=== PATIENT | female | born 2005 | race Two or more races ===

== ENCOUNTER 2025-03-01 19:40 | Emergency (ER) | payer BC, SELFPAY ==
--- OUTSIDE RECORDS SUMMARY | 2025-03-01 19:42 | XMS_ITS | Referral Summary ---
Author Organization [employer] Address [address] [place] [address] Phone Care Team Providers Care Head Mixer Name Role Phone Unavailable Primary Care Provider Unavailabl e Source Comments [employer]box is fully rolled out on [employer]. Last update 03/27/09.[employer] Allergies No known active allergies Medications * This document contains information received from the source organization and may not represent a complete record from that organization. * Be aware that medications may not be up to date as of this document. Always verify current medications with patient. No known medications Social History Tobacco Use Types Packs/Day Years Used Date Smoking Tobacco: Never Assessed Comments Unknown Sex and Gender Information Value Date Recorded Sex Assigned at Not on file Legal Sex Female 2:50 AM CDT Gender Identity Not on file Sexual Orientation Not on file Last Filed Vital Signs Vital Sign Reading Time Taken Comments Blood Pressure 106/60 08/18/2024 9:51 AM CDT Pulse 65 08/18/2024 9:51 AM CDT Temperature 36.9 C (98.4 F) 08/18/2024 4:35 AM CDT Respiratory Rate 14 08/18/2024 7:24 AM CDT Oxygen Saturation 100% 08/18/2024 9:51 AM CDT Inhaled Oxygen Concentration - - Weight - - Height - - Body Mass Index - - Plan of Treatment Not on file Insurance Kim Talbert # ISSA [id number] [facility]
--- OUTSIDE RECORDS SUMMARY | 2025-03-01 19:42 | XMS_ITS | Clinical Summary ---
Author Organization [employer] Address [address] [place] [id number] Phone Care Team Providers Care Section Laborer Name Role Phone Unavailable Primary Care Provider Unavailabl e Source Comments [employer]Payment is fully rolled out on [employer]. Last update 03/27/09.[employer] Allergies No known active allergies Medications * [...] Mass Index - - Plan of Treatment Health Maintenance Due Date Last Done Comments Dental Oral Exam 2003 Dental Prophylaxis 2003 Dental X-Ray: Bitewings 2003 Well Child Check 2006 Chlamydia & Gonorrhea Screening 2015 Periodontal Maintenance 2017 HIV Screening 2018 Imm: DTaP/Tdap (7 - Td or Tdap) 08/09/2023 08/09/2013, 06/29/2007, 10/01/2004, Additional history exists Imm: COVID-19 ( season) 2024 10/18/2022, 05/17/2022, 05/14/2021, Additional history exists Imm: Flu (#1) 06/23/2024 08/13/2021, 08/23, 10/11/2019, Additional history exists Cervical Cancer Screening Age 21-29 2024 Imm: Zoster (1 of 2) 2053 Imm: HepB Completed 01/02/2004, 06/2004, 2003 Imm: Hib Completed 10/01/2004, 06/2004, 2003 Imm: Pneumonia Peds or At-Risk less than 50 years Aged Out 10/01/2004, 07/09/2004, 2003, Additional history exists No longer eligible based on patient's age to complete this topic Imm: HepA Completed 08/28/2008, 07/17/2007 Imm: HPV Completed 09/02/2016, 05/23, 09/04/2015, Additional history exists Imm: Meningitis Completed 11/27/2019, 07/21/2014 Insurance # [id number] [place] [address] [facility]
--- OUTSIDE RECORDS SUMMARY | 2025-03-01 19:42 | XMS_ITS | Clinical Summary ---
Author Organization [facility] Address [address] [place] [address] Care Team Providers Care Asphalt Tar And Gravel Roofer Name Role Phone Evan Perdomo M.D. Primary Care Provider [phone] Source Comments Patient records contain information from all sites at [facility]. For routine questions regarding patient records, call [phone] during business hours, M-F 8:00 AM - 5:00 PM Central Time. Record requests for emergency care only can be directed to [phone] at any time.[facility] Allergies No known active allergies Medications * This document contains information received from the source organization and may not represent a complete record from that organization. ergocalciferol (DRISDOL) 50,000 Unit capsule Take 1 capsule (50,000 Units total) by mouth once a week. 8 capsule 08/11/2022 Active norethindrone-e thinyl estradiol (Loestrin ,) 1-20 mg-mcg per tablet Take 1 tablet by mouth daily. 84 tablet 3 04/30/2024 Active polyethylene glycol (Miralax) 17 gram/dose oral powder Take 17 g by mouth daily. Dissolve each 17 g dose in 240 mL (8 ounces) of beverage. 507 g 2 04/30/2024 Active famotidine (Pepcid) 20 mg tablet Take 1 tablet (20 mg total) by mouth 2 (two) times a day. 60 tablet 3 04/30/2024 Active Active Problems Patient Care Coordination No te Formatting of this note migh t be different from the original. Mom: Isela Dad: Jonel Siblings: ford (mom) [phone](dad) Problem Noted Date Diagnosed Date Acculturation Difficulty 05/17/2022 Overview (11/21/2022): Diagnosis Maintenance Updates Functional Dyspepsia 02/26/2020 Anorexia Nervosa 12/10/2019 Fibrocystic Breast Bilateral 11/19/2015 Malocclusion 09/07/2015 Dyschromia 01/16/2013 Rhinitis Allergic 07/06/2012 Resolved Problems Problem Noted Date Diagnosed Date Resolved Date Fatigue 07/17/2023 04/30/2024 Seborrhea 04/14/2019 12/10/2019 Asthma Chronic Mild 09/05/2016 01/19/20 18 Overview (03/14/2017): Asthma Chronic Mild Encounters Date Type Department Care Team Description 02/25/2025 Orders Only [facility] Evan Tracey M.D. 01/14/2025 Patient Self-Triage [facility] Symptom Weight Control Engineer, Provider 01/14/2025 Patient Self-Triage [facility] Symptom Weight Control Engineer, Provider from Last 3 Months Immunizations Immunization Administration Dates Next Due 4vHPV (discontinued) 09/02/2016,09/04/2015,07/21 9vHPV 09/02/2016,06/07/2016,09/04/2015 DTaP (Daptacel) 10/01/2004 DTaP (Infanrix, Tripedia) 06/29/2007,09/22/2004 DTaP / Hep B / IPV (Pediarix) 01/02/2004, 004,2003 H1N1 All Forms 10/29/2009,09/23/2009 H1N1 Inj 10/29/2009,09/23/2009 HepA Pediatric/Adolescent 08/28/2008,07/17/2007 Hib (PRP-OMP) (PedvaxHIB) 10/01/2004,2003, 2003 Hib (PRP-T) (ACTHIB, HIBERIX) 10/01/2004, 004,2003 IPV 06/29/2007 Influenza, Injectable, Quadrivalent 08/25/2017,0 07/22/2015 Influenza, Seasonal, Injectable 08/28/20 08,08/06/2007,08/22/2006,2004,10/01/2004 Influenza, Unspecified 08/25/2017,2015,07/22/2015,2012,07/26/2011,07/12/2010,08/14/2009,1 11/06/2005,10/11/2005,09/06/2005 MCV4 (Menactra)(Discontinued) 11/27/2019, 014 MMR 07/09/2004 MMRV 06/29/2007 PCV7 (discontinued) 10/01/2004, 4,2003,2002 SARS-COV-2 (COVID-19) - PFIZ ER TS(Discontinued)(12 years or older) 05/17/2022 Tdap 08/09/2013 GERI 07/09/2004 influenza trivalent LAIV (Na bhavana) (2 years through 49 years) 07/24/2012 influenza trivalent vaccine (6 months and older)(PF) 07/12/2010,08/14/2009 influenza vaccine quad (FLUZONE/FLUARIX) (6 months and older)(PF) 08/13/2021,09/10/2020,10/11/2019,2017,09/02/2016,09/23/2014 Family History Medical History Relation Name Comments Healthy elder Grandmother paternal Healthy child Sister Relation Name Status Comments Grandmother paternal Sister Social History Tobacco Use Types Packs/Day Years Used Date Smoking Tobacco: Some Days Cigarettes Last attempted to quit: 07/25/2023 Smokeless Tobacco: Never Tobacco Cessation:Counseling Given: Not Answered Comments:I only smoke sometimes on the weekends, like one or two cigarettes, its very rare whenever i do smoke Alcohol Use Standard Drinks/Week Comments Yes 15 (1 standard drink = 0.6 oz pure alcohol) Started drinking my second year of college and mainly on the weekends [facility] Utilities Answer Date Recorded In the past 12 months has e [employer], gas, oil, or water [employer] threatened to shut off services in your home? No 04/03/2024 Humiliation, Afraid, Rape, and Kick questionnair e Answer Date Recorded Within the last year, have y ou been afraid of your partner or ex-partner? No 08/04/2022 Within the last year, have y ou been humiliated or emotionally abused in other ways by your partner or ex-partner? No Within the last year, have y ou been kicked, hit, slapped, or otherwise physically hurt by your partner or ex-partner? No 08/04/2022 Within the last year, have y ou been raped or forced to have any kind of sexual activity by your partner or ex-partner? No 08/04/2022 Social Connection and Isolat ion Panel [NHANES] Answer Date Recorded In a typical week, how many times do you talk on the phone with family, friends, or neighbors? More than three times a week 08/04/2022 How often do you get togethe r with friends or relatives? More than three times a week 08/04/2022 How often do you attend chur or jainism services? More than 4 times per year 08/04/2022 Do you belong to any clubs o r organizations such as shinto groups, unions, fraternal or athletic groups, or school groups? Yes 08/04/2022 How often do you attend meet ings of the clubs or organizations you belong to? More than 4 times per year 08/04/2022 Are you , , di vorced, , never , or living with a partner? Never 08/04/2022 AUDIT-C Answer Date Recorded Q1: How often do you have a drink containing alc ohol? Never 08/04/2022 Average Number of Drinks Not on file 022 Frequency of Binge Drinking Not on file 07/23 Overall Financial Resource Strain (CARDIA) Answe r Date Recorded How hard is it for you to pa y for the very basics like food, housing, medical care, and heating? Not hard at all 08/04/2022 PHQ-2 Answer Date Recorded PHQ-2 Score 3 01/14/2025 [facility] [place] of Occupat ional Health - Occupational Stress Questionnaire Answer Date Recorded Do you feel stress - tense, restless, nervous, or anxious, or unable to sleep at night because your mind is troubled all the time - these days? To some extent 08/04/2022 Exercise Vital Sign Answer Date Recorde d On average, how many days pe r week do you engage in moderate to strenuous exercise (like a brisk walk)? 5 days 04/03/2024 On average, how many minutes do you engage in exercise at this level? 40 min 04/03/2024 Hunger Vital Sign Answer Date Recorded Within the past 12 months, y ou worried that your food would run out before you got the money to buy more. Never true 04/03/20 24 Within the past 12 months, t he food you bought just didn't last and you didn't have money to get more. Never true 04/03/2024 PRAPARE - Transportation Answer Date Re corded In the past 12 months, has l ack of transportation kept you from medical appointments or from getting medications? No 03/23 In the past 12 months, has l ack of transportation kept you from meetings, work, or from getting things needed for daily living? No 04/03/2024 Depression Answer Date Recor ded PHQ-9 Total Score (max 27) 14 01/14 Nutrition Answer Date Recorded On average, how many serving s of fruits and vegetables do you eat per day (serving size is equal to 1 cup or approximately the size of a tennis ball)? 0-2 04/03/2024 Dental Answer Date Recorded Dental: Regular Dentist Yes 08/13/20 Employment Answer Date Recorded Employment status Unemployed/not in th e paid workforce and NOT seeking employment 04/03/2024 Housing Stability Answer Date Recorded What is your living situation today? I have a [facility] place to live 04/03/2024 Education Answer Date Recorded What is the highest level of school you have completed or the highest degree you have received? Bachelor's degree (e.g., BA, AB, BS) 08/04/2022 Comments Unknown Sex and Gender Information Value Date Recorded Sex Assigned at Female 07/11/2023 11:39 AM CDT Legal Sex Female 9:25 AM MOVER HELPER Gender Identity Female 07/11/2023 11:39 AM CDT Sexual Orientation Straight 07/11/2023 11 :39 AM CDT Last Filed Vital Signs Vital Sign Reading Time Taken Comments Blood Pressure 101/68 04/30/2024 3:[address] rage Pulse 83 04/30/2024 3:26 PM CDT Temperature 36.2 C (97.2 F) 04/30/2024 3:26 PM CDT Respiratory Rate 16 04/30/2024 3:26 PM CDT Oxygen Saturation 99% 08/13/2021 3:23 PM CDT Inhaled Oxygen Concentration - - Weight 63.1 kg (139 lb 1.8 oz) 04/30/2024 3:26 P M CDT Height 159.5 cm (5' 2.8) 04/30/2024 3:26 PM CDT Body Mass Index 24.8 04/30/2024 3:26 PM CDT Plan of Treatment Health Maintenance Due Date Last Done Comments Cervical/Vaginal Cancer Screening 2003 HIV Screening 2003 Hepatitis C Screening 2003 TB Screening during Well Chi ld Visit 2003 1 week Well Child Check-Up 2003 1 month Well Child Check-Up 2003 2 month Well Child Check-Up 2003 4 month Well Child Check-Up 2003 9 month Well Child Check-Up 02/24/2004 15 month Well Child Check-Up 08/26/2004 18 month Well Child Check-Up 11/26/2004 2 year Well Child Check-Up 05/26/2005 30 month Well Child Check-Up 11/26/2005 3 year Well Child Check-Up 05/26/2006 Well Child Check-Up Complete d in Past Year 05/26/2006 5 year Well Child Check-Up 05/26/2008 6 year Well Child Check-Up 05/26/2009 7 year Well Child Check-Up 05/26/2010 8 year Well Child Check-Up 05/26/2011 10 year Well Child Check-Up 05/26/2013 12 year Well Child Check-Up 05/26/2015 13 year Well Child Check-Up 05/26/2016 14 year Well Child Check-Up 05/26/2017 18 year Well Child Check-Up 05/26/2021 Chlamydia and Gonorrhea Screening 02/15/2022 021 19 year Well Child Check-Up 05/26/2022 Pneumococcal vaccine (0-49 y ears) (1 of 2 - PCV) 2022 10/01/2004, 07/09/2004, 2003, Additional history exists Tobacco Cessation counseling 08/05/2023 08/05/2022 DTaP,Tdap,and Td Vaccines (7 - Td or Tdap) 08/09/2023 08/09/2013, 06/29/2007, 10/01/2004, Additional history exists 19 year Well Child Check-Up 05/26/2024 Well Child Check-Up ([facility]) 05/26/2024 COVID-19 Vaccine (2023-2 5 season) 2024 10/18/2022, 05/17/2022, 05/14/2021, Additional history exists Influenza Vaccine (#1) 2024 , 09/10/2020, 10/11/2019, Additional history exists Depression Screening (Annual PHQ-2) 10/23/2024 Hepatitis B Vaccines Completed 01/02/2004, 2003, 2003 IPV Vaccines Completed 06/29/2007, 12/21, 2003, Additional history exists HPV Vaccines Completed 09/02/2016, 08/23, 06/07/2016, Additional history exists 15 year Well Child Check-Up Completed 07/25/2018 Meningococcal Vaccine Completed 11/27/2019, 014 17 year Well Child Check-Up Completed 02/15/2021 20 year Well Child Check-Up Completed 07/17/2023 Procedures Procedure Name Priority Date/Time Associated Diagnosis Comments CHLAMYDIA/GONORRHOE AE AMPLIFIED RNA Routine 02/15/2021 4:37 PM CDT Screening For Venereal Disease from Last 3 Months or Most Recently Relevant to Health Maintenance Results * Chlamydia / Gonorrhoeae Amplified RNA (02/15/2021 4:37 PM CDT) Source Urine, Urine, First Voided 02/16/2021 12:21 AM CDT MKTO Chlamydia trachomatis amplified RNA Negative Negative 02/16/2021 12:21 AM CDT MKTO Source Urine, Urine, First Voided 02/16/2021 12:21 AM CDT MKTO Neisseria gonorrhoeae amplified RNA Negative Negative 02/16/2021 12:21 AM CDT MKTO Varies (Urine, First Voided) 02/15/2021 4:37 PM CDT 02/15/2021 6:48 PM CDT Jaylyn Lorena Vigil APRN C.N.P., R.N. LAB MICROBIOLO GY - GENERAL ORDERABLES Final Result [facility] [address] [place] [address], [place] MKTO [facility] [place] [address] [place] [address] from Last 3 Months or Most Recently Relevant to Health Maintenance Insurance [facility] [place] [address] Care Teams Asphalt Tar And Gravel Roofer Relationship Specialty Start Date End Date Evan Perdomo M.D. [address] [place] [address] [place] [phone] PCP - General 07/21/23
--- OUTSIDE RECORDS SUMMARY | 2025-03-01 19:42 | XMS_ITS | Encounter Summary ---
Author Organization [facility] Address [address] [place] [address] Care Team Providers Care Taffy Candy Maker Name Role Phone Evan Perdomo M.D. Primary Care Provider [phone] Reason for Referral * Outpatient (Routine) - Authorized Specialty Diagnoses / Procedures Referred By Xiao fletcher Referred To Contact Family Medicine Evan Perdomo M.D. [address] [place] [address] Phone: tel: fax: [facility] Referral ID Status Reason Start Date Expiration Date V isits Requested Visits Authorized [id number] Authorized 02/25/2025 08/27/2026 1 1 Encounter Details Date Type Department Care Team (Late st Contact Info) Description 02/25/2025 Orders Only [facility] SEMN PCP [facility] M[facility] Evan Perdomo M.D. [address] [place] [address] Social History Tobacco Use Types Packs/Day Years Used Date Smoking Tobacco: Some Days Cigarettes Last attempted to quit: 07/25/2023 Smokeless Tobacco: Never Comments:I only smoke someti mes on the weekends, like one or two cigarettes, its very rare whenever i do smoke Alcohol Use Standard Drinks/Week Comments Yes 15 (1 standard drink = 0.6 oz pure alcohol) Started drinking my second year of college and mainly on the weekends [facility] Utilities Answer Date Recorded In the past 12 months has th e [employer], [employer], oil, or water [employer] threatened to shut off services in your [...] 08/04/2022 How often do you attend chur ch or worship services? More than 4 times per year 08/04/2022 Do you belong to any clubs o r organizations such as mu-ism groups, unions, fraternal or athletic groups, or [...] Answer Date Recorded PHQ-2 Score 3 01/14/2025 [employer] [place] of Occupat ional Health - Occupational Stress [...] Date Recorded Dental: Regular Dentist Yes 08/13/20 21 Employment Answer Date Recorded Employment status Unemployed/not in th e paid workforce and NOT seeking employment 04/03/2024 Housing Stability Answer Date Recorded What is your living situation today? I have a [facility] place to live 04/03/2024 Education Answer Date Recorded What is the highest level of school you have completed or the highest degree you have received? Bachelor's degree (e.g., BA, AB, BS) 08/04/2022 Comments Unknown Sex and Gender Information Value Date Recorded Sex Assigned at Female 07/11/2023 11:39 AM CDT Legal Sex Female 9:25 AM UPHOLSTERER LIMOUSINE AND HEARSE Gender Identity Female 07/11/2023 11:39 AM CDT Sexual Orientation Straight 07/11/2023 11 :39 AM CDT documented as of this encounter Plan of Treatment Scheduled Referrals Name Type Priority Associated Diagnoses Orde r Schedule Family Medicine office visit (clinic) Outpatient Referral Routine Expected: 03/11/2025, Expires: 08/14/2025 documented as of this encounter Visit Diagnoses Not on filedocumented in this encounter Additional Health Concerns Assessment Noted Time PHQ-9 Depression Total Score: 14 025 2:22 PM CDT documented as of this encounter Care Teams Taffy Candy Maker Relationship Specialty Start Date End Date Evan Perdomo M.D. [address] [place] [phone] PCP - General 07/21/23 documented as of this encounter
[2025-03-01 19:44] VITALS: BP 125/75; PULSE 95; RESP 20; TEMP 36.8; O2SAT 99; BMI 23.9
--- NOTE | 2025-03-01 19:51 | ED_ITS ---
HPI - General Adult General Chief complaint: Cough Stated complaint: Chronic Cough Time Seen by Provider: 03/01/25 19:41 History of Present Illness HPI narrative: This 19-year-old female comes in reporting cough over the past 3 weeks. She does not report any fevers. She feels that her cough is more congested in the morning. She does have some sore throat and also reports some nasal congestion. Related Data Home Medications ?Medication ?Instructions ?Recorded ?Confirmed famotidine 20 mg tablet 20 mg PO BID 03/01/25 03/01/25 Allergies Allergy/AdvReac Type Severity Reaction Status Date / Time No Known Drug Allergies Allergy Verified 03/01/25 19:46 Review of Systems Status of ROS: Reports: 10 or more systems reviewed and unremarkable except as noted in History and below Narrative: Constitutional: No fevers, no weight gain or loss. Eyes: No discharge. No vision changes. HENT: Nasal congestion and sore throat. Cardiovascular: No chest pain, no palpitations. Respiratory: No shortness of breath, no wheezes. Cough for 3 weeks. Gastrointestinal: No abdominal pain, no vomiting, no diarrhea. Genitourinary: No dysuria, no hematuria. Musculoskeletal: Normal range of motion. Skin: No rashes, no pruritis. Neurological: No dizziness, weakness, sensory change, speech change. Endo/Heme/Allergies: No bruising or bleeding. No polydipsia. Pysch: no suicidality, no anxiety, no insomnia. All other systems reviewed and are negative. [facility] Medical History (Updated 03/01/25 @ 21:28 by Jason Carson MD) No significant past medical history Surgical History (Updated 03/01/25 @ 19:49 by Ross Magallanes RN) No significant past surgical history Social History Smoking Status: Never smoker Second hand tobacco smoke exposure: No How often do you have a drink containing alcohol: never AUDIT-C Alcohol total score: 0 Non-prescribed substance use: denies use Exam Narrative: Exam Narrative: Constitutional: Well-developed, well-nourished, no acute distress. HEENT: Normocephalic, atraumatic. Neck: Normal range of motion. Nontender. Supple. Heart: Regular. No murmurs. Normal rate. Intact distal pulses. Lungs: Clear to auscultation. No chest discomfort. No wheezes, rhonchi, or rales. Abdomen: Normal bowel sounds. Nontender. No rebound tenderness. Genitalia: Deferred. Back: No midline tenderness. Normal range of motion. Extremities: Normal range of motion. No injury. Skin: Intact. No rash. Warm. No erythema or pallor. Neurologic: No altered sensation. No weakness. Alert and oriented. Psychiatric: No suicidality. No anxiety or depression. No insomnia. Nursing notes and vitals signs are reviewed. Const: Vital Signs, click to edit/add: Vital Signs - 24 hr 03/01/25 19:44 03/01/25 20:40 Temperature 98.3 F 98.3 F Pulse Rate [Right Pulse Oximeter] 95 87 Respiratory Rate 20 20 Blood Pressure [Ri ght Upper Arm] 125/75 127/71 Pulse Oximetry 99 99 Oxygen Delivery Me thod Room Air Room Air Course Vital Signs Vital signs: Initial Vital Signs Temperature 98.3 F 03/01/25 19:44 Temperature Source Temporal Artery Scan 03/01/25 19:44 Pulse Rate 95 03/01/25 19:44 Respiratory Rate 20 03/01/25 19:44 Respiratory Effort Normal, Spontaneous, Non-Labored 03/01/25 19:44 Respiratory Depth Normal 03/01/25 19:44 Respiratory Pattern Normal 03/01/25 19:44 Blood Pressure 125/75 03/01/25 19:44 Blood Pressure Mean 91 03/01/25 19:44 Blood Pressure Position Sitting 03/01/25 19:44 Pulse Oximetry 99 03/01/25 19:44 Oxygen Delivery Method Room Air 03/01/25 19:44 Vital Signs Temperature 98.3 F 03/01/25 19:44 Pulse Rate 95 03/01/25 19:44 Respiratory Rate 20 03/01/25 19:44 Blood Pressure 125/75 03/01/25 19:44 Pulse Oximetry 99 03/01/25 19:44 Oxygen Delivery Method Room Air 03/01/25 19:44 Temperature 98.3 F 03/01/25 20:40 Pulse Rate 87 03/01/25 20:40 Respiratory Rate 20 03/01/25 20:40 Blood Pressure 127/71 03/01/25 20:40 Pulse Oximetry 99 03/01/25 20:40 Oxygen Delivery Method Room Air 03/01/25 20:40 Medical Decision Making MDM Narrative Medical decision making narrative: This patient reports a cough for about 3 weeks. Nasal pharyngeal swab is negative for viruses and chest x-ray also shows no acute pulmonary disease. She did receive an oral dose of dexamethasone and I did provide [employer] prescription for some tablets of Tylenol 3 for symptomatic relief. Most likely her symptoms are related to a virus. Lab Data Labs: Lab Results 03/01/25 Range/Units 19:51 SARS-CoV-2 (PCR) Negative SARS-CoV-2 (Negative) Influenza Type A (PCR) Negative PCR FLU A (Negative) Influenza Type B (PCR) Negative PCR FLU B (Negative) RSV (PCR) Negative PCR RSV (Negative) Imaging Data Chest x-ray: Radiologist's impression: Streaky opacities in the right lower lobe, may reflect atelectasis versus early manifestations of pneumonia. Discharge Plan Discharge Clinical Impression: Acute upper respiratory infection Patient Disposition: Home, Self-Care Condition: Stable Additional Instructions: Take medication as prescribed and needed. Follow up with MD return if worsening. Prescriptions: No Action famotidine 20 mg tablet 20 mg PO BID Follow Up/Referrals: Provider,Not a Local [Primary Care Provider] - Stand Alone Forms: Swift Shift Info Instructions
--- NOTE | 2025-03-01 19:51 | CRLHL7_ITS ---
For Patients: As a result of the Century Cures Act, medical imaging exams and procedure reports are released immediately into your electronic medical record. You may view this report before your referring provider. If you have questions, please contact your health care provider. INDICATION: Cough. TECHNIQUE: Chest 2 view(s) COMPARISON: None. FINDINGS: Cardiomediastinal silhouette and pulmonary vasculature are normal. Streaky opacities in the right lower lobe. Few punctate calcified granulomas throughout the right lung. No layering pleural effusion. No pneumothorax. No acute osseous abnormality. IMPRESSION: Streaky opacities in the right lower lobe, may reflect atelectasis versus early manifestations of pneumonia. Dictated by Alize Blanco MD @ 03/01/2025 8:20:59 PM (Electronically Signed)
[2025-03-01 20:40] VITALS: BP 127/71; PULSE 87; RESP 20; TEMP 36.8; O2SAT 99
[2025-03-01 21:22] LABS: PCR FLU A Negative PCR FLU A (Negative); PCR FLU B Negative PCR FLU B (Negative); PCR RSV Negative PCR RSV (Negative); SARS PCR* Negative SARS-CoV-2 (Negative)
--- OUTSIDE RECORDS SUMMARY | 2025-03-01 21:22 | XMS_ITS | Clinical Summary ---
Author Organization [facility] Address [address] [place] [address] Care Team Providers Care Wrister Name Role Phone Evan Perdomo M.D. Primary Care Provider [phone] Source Comments Patient records contain information from all sites at [facility]. For routine questions regarding patient records, call [phone] during business hours, M-F 8:00 AM - 5:00 PM Central Time. Record requests for emergency care only can be directed to [phone] at any time.[facility] Allergies No known active allergies Medications * [...] Mom: Isela Dad: Jonel Siblings: ford (mom) [phone](dad) Problem Noted Date Diagnosed Date Acculturation Difficulty [...] M.D. 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 More than 4 times per year 08/04/2022 Do you belong to any clubs o r organizations such as restoration groups, unions, fraternal or athletic groups, or [...] Answer Date Recorded PHQ-2 Score 3 01/14/2025 [facility] Occupat ional Health - Occupational Stress [...] your living situation today? [facility] 04/03/2024 Education Answer Date Recorded What is the highest level of school you have completed or the highest degree you have received? 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 [address] [place] [address] [place] [phone] PCP - General 07/21/23
--- OUTSIDE RECORDS SUMMARY | 2025-03-01 21:22 | XMS_ITS | Clinical Summary ---
Author Organization [facility] [employer] Address [address] [place] [address] Phone Care Team Providers Care Adaptive Physical Education Specialist Name Role Phone Unavailable Primary Care Provider Unavailabl e Source Comments [employer] is fully rolled out on [employer]. Last update 03/27/09.[facility] Allergies No known active allergies Medications * [...] Meningitis Completed 11/27/2019, 07/21/2014 Insurance # [id number] [place] [address] [facility]
--- OUTSIDE RECORDS SUMMARY | 2025-03-01 21:22 | XMS_ITS | Referral Summary ---
Author Organization [facility] Address [address] [place] [address] Phone Care Team Providers Care Commissioned Defence Force Officer Name Role Phone Unavailable Primary Care Provider Unavailabl e Source Comments [employer] is fully rolled out on [employer]. Last update 03/27/09.[facility] Allergies No known active allergies Medications * [...] file Insurance Kim Talbert # [id number] [facility]
--- OUTSIDE RECORDS SUMMARY | 2025-03-01 21:22 | XMS_ITS | Encounter Summary ---
Author Organization [facility] Address [address] [place] [address] Care Team Providers Care Bottle House Quality Control Technician Name Role Phone Evan Perdomo M.D. Primary Care Provider [phone] Reason for Referral * Outpatient (Routine) - Authorized Specialty Diagnoses / Procedures Referred By Xiao fletcher Referred To Contact Family Medicine Evan Perdomo M.D. [address] [place] [address] Phone: tel: fax: [facility] Referral ID Status Reason Start Date Expiration Date V isits Requested Visits Authorized [id number] Authorized 02/25/2025 08/27/2026 1 1 Encounter Details Date Type Department Care Team (Late st Contact Info) Description 02/25/2025 Orders Only [facility] SEMN PCP [facility] MNT Evan Perdomo M.D. [address] [place] [phone] Social History Tobacco Use Types [...] of college and mainly on the weekends [facility] Utilities Answer Date Recorded In the past 12 months has th e [employer], [employer], oil, or water [employer] threatened to shut off services in your [...] often do you attend chur ch or muslim services? More than 4 times per year 08/04/2022 Do you belong to any clubs o r organizations such as faith groups, unions, fraternal or athletic groups, or [...] Answer Date Recorded PHQ-2 Score 3 01/14/2025 [facility] [place] [facility] Occup[facility] ional Health - Occupational Stress [...] your living situation today? I have a [facility] place to live 04/03/2024 Education Answer Date Recorded What is the highest level of school you have completed or the highest degree you have received? 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 [address] [place] [phone] PCP - General 07/21/23 documented as of this encounter
[2025-03-01] MEDS: dexAMETHasone 10 MG/ML inj PO (21:31)
[2025-03-01 21:34] VITALS: BP 127/71; PULSE 87; RESP 20; TEMP 36.8
== END 2025-03-01 21:35 | disposition home or self-care (01) ==
PROVIDERS: Emergency Provider Emergency Medicine Emergency Medical Services
DX: J06.9 Acute upper respiratory infection, unspecified (principal); J02.9 Acute pharyngitis, unspecified; R09.81 Nasal congestion
CPT/HCPCS: 71046; 87631; 99284; J1100